=== PATIENT | male | born 1965 | race Caucasian/White ===

== ENCOUNTER 2019-06-17 17:50 | Emergency (ER) | payer SELFPAY ==
[~2019-06-17] VITALS: Ht 177.8 cm; Wt 57.8 kg
[2019-06-17 18:14] VITALS: BP 111/79
[2019-06-17] MEDS ORDERED: IV NORMAL SALINE 1,000ML 1,000 ML IV ONE (18:15)
--- NOTE | 2019-06-17 18:15 | PHYS DOC ---
General Chief Complaint: ALCOHOL INTOXICATION Stated Complaint: ETOH Time Seen by MD: 18:12 History of Present Illness Allergies: Coded Allergies: Unable to Assess (Unverified , 06/17/19) pt intoxicated, unable to answer questions JULIÁN PRABHAKAR I DO Jun 17, 2019 18:15
--- NOTE | 2019-06-17 18:29 | PHYS DOC ---
Past History Past Medical History: Other Additional Past Medical Histor: unknown Past Surgical History: Other Additional Past Surgical Histo: unknown Alcohol Use: Heavy Adult General Chief Complaint Chief Complaint: ALCOHOL INTOXICATION HPI HPI 54-year-old male was brought in by EMS for evaluation of alcohol intoxication. Prior to arrival patient was drunk at [employer]. On exam patient with alcohol on his breath. Patient slurring his words. Patient with no complaints. Patient without signs of trauma. Review of Systems Review of Systems unable to obtain ROS due to intoxication All other systems were reviewed and found to be within normal limits, except as documented in this note. Current Medications Current Medications Current Medications Medications (Trade) Dose Ordered Sig/Sammy Start Time Stop Time Status Last Admin Dose Admin Sodium Chloride 1,000 ml @ 1,000 mls/hr 1X ONCE 06/17/19 18:15 06/17/19 19:14 Allergies Allergies Allergies Coded Allergies Type Severity Reaction Last Updated Verified Unable to Assess 06/17/19 No Physical Exam Physical Exam Constitutional: Well developed, well nourished, no acute distress, non-toxic appearance. [] HENT: Normocephalic, atraumatic, bilateral external ears normal, oropharynx moist, no oral exudates, nose normal. [] Eyes: PERRLA, EOMI, conjunctiva normal, no discharge. [] Neck: Normal range of motion, no tenderness, supple, no stridor. [] Cardiovascular:Heart rate regular rhythm, no murmur [] Lungs & Thorax: Bilateral breath sounds clear to auscultation [] Abdomen: Bowel sounds normal, soft, no tenderness, no masses, no pulsatile mass es. [] Skin: Warm, dry, no erythema, no rash. [] Back: No tenderness, no CVA tenderness. [] Extremities: No tenderness, no cyanosis, no clubbing, ROM intact, no edema. [] Neurologic: Alert and oriented X 3, slurred speech, under the influence Psychologic: Affect normal, judgement normal, mood normal. [] Current Patient Data Vital Signs Vital Signs Date Time Temp Pulse Resp B/P (MAP) Pulse Ox O2 Delivery O2 Flow Rate FiO2 06/17/19 18:14 98.6 75 16 111/79 (90) 97 Room Air EKG EKG [] Radiology/Procedures Radiology/Procedures [] Course & Med Decision Making Course & Med Decision Making Pertinent Labs and Imaging studies reviewed. (See chart for details) [] Patient was intially treated with Geodon 10mg IM-- patient up out of bed and unstead on his feet. Planned treatment with geodon to help patient sleep and sober up. Patient was observed for >5 hrs. Patient awoke-- no longer slurring his words. Patient up and to the bathroom with steady gait. Patient was discharged. Dragon Disclaimer Dragon Disclaimer This electronic medical record was generated, in whole or in part, using a voice recognition dictation system. Departure Departure: Impression: Primary Impression: Alcohol intoxication Disposition: HOME, SELF-CARE Condition: STABLE Patient Instructions: Alcohol Intoxication JULIÁN PRABHAKAR I DO Jun 17, 2019 18:29
--- NOTE | 2019-06-17 19:03 | NUR ---
NOTIFIED [facility] TO NOTIFY THEM HE WAS LEAVING AMA. THEY SAID THEY WOULD LET OFFICERS KNOW.
[2019-06-17] MEDS ORDERED: ZIPRASIDONE IM 20 MG VIAL. IM ONE ×2 (19:15→19:30)
== END 2019-06-17 22:38 | disposition home or self-care (01) ==
LOC: ER 17:50
DX: F10.229 Alcohol dependence with intoxication, unspecified (principal); Y90.9 Presence of alcohol in blood, level not specified
CPT/HCPCS: 51702; 96372; 99284; J3486; J7030